=== PATIENT | female | born 1980 | race Two or more races ===

== ENCOUNTER → 2024-09-22 | Outpatient (CLI) | payer MEDICAID, SELFPAY ==
--- NOTE | 2024-09-22 10:30 | XR_ITS ---
Examination: Breast ultrasound complete, bilateral Date and time of exam: September 22, 2024 1046 hours INDICATIONS: Bilateral breast sonography August 23, 2019 left breast 4:00 nodule 16 mm, outside mammogram August 03, 2024 6 mm focal asymmetry inner right breast 14 mm mass lower inner left breast Technique: Real-time grayscale ultrasonographic imaging bilateral breasts, including all 4 quadrants as well as nipple retroareolar and axillary regions. Findings: Sonographic images right breast 4:00 hyperechoic mass with cystic change 9 x 8 mm Sonographic images left breast 9:00 nodule lobular margins 10 x 16 mm 10:00 cyst 7 x 7 mm IMPRESSION: BI-RADS Category 3: Probably benign findings One additional 6 month bilateral breast sonography follow-up is needed
--- NOTE | 2024-09-22 11:30 | XR_ITS ---
Examination: Diagnostic digital mammography, bilateral Computer aided detection 3-D breast Tomosynthesis, bilateral Date and time of exam: September 22, 2024 1109 hours INDICATIONS: Outside mammogram August 03, 2024 6 mm nodule lower inner quadrant right breast 14 mm nodule lower inner quadrant left breast Technique: Nonmagnified MLO, CC views of the breasts to been obtained, reconstructed from 3-D Tomosynthesis images. R2 computer aided detection program utilized for evaluation of suspicious masses and/or abnormal calcifications. 3-D Tomosynthesis images obtained. Findings: The breasts are heterogeneously dense, which may obscure small masses 14 mm focal asymmetry remains inner left breast 9:00 nodule remains outer right breast Impression: BI-RADS Category 3: Probably benign findings Bilateral mammography 6 month follow-up is needed to document stability of focal asymmetries described above.
== END | disposition home or self-care (01) ==
PROVIDERS: PCP Nurse Practitioner Family; Referring Provider Nurse Practitioner Family; Visit Provider Nurse Practitioner Family
DX: R92.8 Other abnormal and inconclusive findings on diagnostic imaging of breast (principal); R92.333 Mammographic heterogeneous density, bilateral breasts; N64.89 Other specified disorders of breast
CPT/HCPCS: 76641; 77062; 77066; G0279

== ENCOUNTER → 2025-02-02 | Outpatient (CLI) | payer MEDICAID, SELFPAY ==
--- NOTE | 2025-02-02 | XR_ITS ---
Examination: Hand, right 3 views Technique: Hand AP, oblique, lateral 3 views Date and time of exam: February 02, 2025, 11:24 a.m. INDICATIONS: Hand pain months. FINDINGS: Mild osteoarthritis radiocarpal joint Small benign area of cystic change in the lunate The lunate does demonstrate sclerosis No erosive arthritis No acute fracture IMPRESSION: Consider MRI wrist without contrast follow-up to confirm avascular necrosis lunate
--- NOTE | 2025-02-02 | XR_ITS ---
Examination: Right elbow 3 views Technique: Elbow AP, oblique, lateral 3 views Exam date and time: February 02, 2025, 1124 hours INDICATIONS: Right elbow pain months. FINDINGS: No fracture or dislocation. No arthritic change No elbow effusion IMPRESSION: Negative for osseous abnormality.
--- NOTE | 2025-02-02 | XR_ITS ---
Examination: Wrist, right 3 views Technique: Wrist AP, oblique, lateral 3 views Date and time of exam: February 02, 2025, 1124 hours INDICATIONS: Wrist pain months. FINDINGS: Benign cystic change in the lunate, 5 mm Sclerosis involving the lunate No acute fracture Mild narrowing radiocarpal joint IMPRESSION: Consider MRI wrist follow-up without contrast to confirm avascular necrosis lunate
== END | disposition home or self-care (01) ==
PROVIDERS: PCP Physician Assistant; Referring Provider Nurse Practitioner Gerontology; Visit Provider Nurse Practitioner Gerontology
DX: M25.521 Pain in right elbow (principal); M79.641 Pain in right hand; M25.531 Pain in right wrist
CPT/HCPCS: 73080; 73110; 73130